=== PATIENT | female | born 1975 | race American Indian/Alaskan Native ===

== ENCOUNTER 2017-02-15 08:53 | Day surgery (SDC) | payer OTHER ==
[2017-02-15 09:33] VITALS: BMI 23.3
[2017-02-15 09:57] VITALS: O2SAT 100
[2017-02-15] MEDS ORDERED: Propofol 10 mg/ml Inj (20 ML) ONE ×2 (10:41→11:10)
[2017-02-15] MEDS ORDERED: Lactated Ringer's 500 ML IV SCH (10:45)
[2017-02-15] MEDS ORDERED: Albuterol HFA 90 mcg/actuation (8 g) ONE (11:39)
[2017-02-15 12:04] VITALS: PULSE 82
[2017-02-15 14:24] VITALS: BP 110/65; RESP 16; TEMP 98.5
== END 2017-02-15 13:05 | disposition home or self-care (01) ==
LOC: C.ENDO 08:53
PROVIDERS: ATTEND Internal Medicine Gastroenterology
DX: B37.81 Candidal esophagitis (principal)
CPT/HCPCS: 43239; 84703; 88104; 88305; J2704; J7120